=== PATIENT | female | born 2000 | race Caucasian/White ===

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

== ENCOUNTER → 2020-12-16 10:48 | Outpatient (CLI) | payer OTHER, SELFPAY ==
[2020-10-20 10:25] VITALS: BMI 19.4
--- NOTE | 2020-12-16 10:50 | US_ITS ---
STUDY: ULTRASOUND BREAST - LEFT REASON FOR EXAM: Female, 20 years old. Follow-up for left breast masses. Prior biopsy. TECHNIQUE: Axial and longitudinal images of the LEFT breast were performed with a high resolution ultrasound transducer. # OF IMAGES: 17 COMPARISON: Comparison is made with prior sonogram of the left breast dated 12/08/2019. FINDINGS: LEFT Breast: There is a 1.4 cm x 1.7 cm x 0.6 cm well-defined hypoechoic solid nodule at the 12 o''clock position of the breast at 8 cm from the nipple. This is unchanged. Prior biopsy was performed. At the 1 o''clock position breast at 3 cm from the nipple, there is a 1.2 cm x 1 cm x 0.8 cm hypoechoic slightly irregular nodule. No posterior shadowing or enhancement is seen. This is unchanged. Prior biopsy was performed. US/Breast Complete Unilateral IMPRESSION: Stable examination. These nodules have been biopsied. ASSESSMENT CATEGORY: BIRADS Category 2: Benign. A letter regarding these results will be sent to the patient by the facility within 30 days. Electronically Signed: Ezra Hamm MD at 8:51 EDT , Service support ,
== END ==
PROVIDERS: PCP Pediatrics; Referring Provider Surgery; Visit Provider Surgery
DX: Z98.890 Other specified postprocedural states (principal)
CPT/HCPCS: 76641

== ENCOUNTER → 2022-10-29 | Outpatient (CLI) | payer OTHER, SELFPAY ==
[2022-10-30 22:06] LABS: Chlamydia By Nucleic Acid AMP Negative (Negative); Gonococcus By Nucleic Acid AMP Negative (Negative)
[2022-11-05 12:30] LABS: HPV Reflexed? NOT INDICATED
== END | disposition home or self-care (01) ==
PROVIDERS: PCP Student in an Organized Health Care Education/Training Program; Referring Provider Nurse Practitioner Women's Health; Visit Provider Nurse Practitioner Women's Health
DX: Z12.4 Encounter for screening for malignant neoplasm of cervix (principal); Z11.3 Encounter for screening for infections with a predominantly sexual mode of transmission
CPT/HCPCS: 87491; 87591; 88175; G0145

== ENCOUNTER → 2024-02-12 | Outpatient (CLI) | payer OTHER, SELFPAY ==
[2024-02-19 15:08] LABS: Almond <0.10 kU/L (Class 0); Banana <0.10 kU/L (Class 0); Brazil Nut <0.10 kU/L (Class 0); Cashew <0.10 kU/L (Class 0); Clam <0.10 kU/L (Class 0); Codfish <0.10 kU/L (Class 0); Crab <0.10 kU/L (Class 0); Egg, Whole <0.10 kU/L (Class 0); Hazelnut/Filbert <0.10 kU/L (Class 0); Milk (Cow) <0.10 kU/L (Class 0); Oat <0.10 kU/L (Class 0); Peanut <0.10 kU/L (Class 0); Pecan <0.10 kU/L (Class 0); Salmon <0.10 kU/L (Class 0); Shrimp <0.10 kU/L (Class 0); Tuna <0.10 kU/L (Class 0); Wheat <0.10 kU/L (Class 0); Yeast <0.10 kU/L (Class 0)
== END | disposition home or self-care (01) ==
LOC: LAB 16:19
PROVIDERS: PCP Student in an Organized Health Care Education/Training Program; Referring Provider Otolaryngology Otolaryngology/Facial Plastic Surgery; Visit Provider Otolaryngology Otolaryngology/Facial Plastic Surgery
DX: T78.40XA Allergy, unspecified, initial encounter (principal)
CPT/HCPCS: 86003

== ENCOUNTER → 2024-10-13 | Outpatient (CLI) | payer OTHER, SELFPAY ==
--- NOTE | 2024-10-13 14:25 | BI_ITS ---
EXAM: DIAG MAMM W/CAD, BILAT; BREAST LIMITED UNILATERAL; BILAT BRST MEL STAND ALONE 10/13/2024 CLINICAL HISTORY: F, Age 24 y/o , BREAST LUMP; LUMP. No family history of breast cancer. 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 TECHNIQUE: Bilateral Diagnostic digital breast tomosynthesis with 2D and 3D images. Computer aided detection. Also, targeted right breast ultrasound was performed. COMPARISON: Baseline examination. Left breast ultrasounds dated 12/16/2020 and 12/08/2019. FINDINGS: MAMMOGRAM: TISSUE DENSITY: The breast tissue is extremely dense which lowers the sensitivity of mammography. The mammogram demonstrates that the patient has dense breasts. Supplemental screening with whole breast ultrasound or MRI may be considered for further evaluation. Bilateral Breast Mammographic Findings: There is a triangle skin marker indicating an area of palpable concern in the central lower right breast. However, there is no definite underlying mammographic finding due to extremely dense breast tissue. Otherwise, there are no suspicious findings seen in the left breast. ULTRASOUND: Ultrasound performed of the area of palpable concern in the right breast demonstrates an oval hypoechoic mass with vascular flow and posterior acoustic enhancement measuring 1.1 x 0.7 x 1.1 cm. This likely represents a fibroadenoma. BI/DIAG MAMM W/CAD, BILAT IMPRESSION: 1. The palpable area of concern in the right breast correlates to a probably b enign mass which likely represents a fibroadenoma. Recommend follow-up diagnostic ultrasound of the right breast in six-months. 2. There is no evidence of malignancy in the left breast. Right Breast: BIRADS 3 PROBABLY BENIGN. Left Breast: BIRADS 1 NEGATIVE. OVERALL FINAL ASSESSMENT: BIRADS 3 PROBABLY BENIGN. RECOMMENDATION: Recommendation: Ultrasound. A letter with findings and recommendations will be mailed to the patient. Reading Location: [id number]
--- NOTE | 2024-10-13 15:18 | BI_ITS ---
EXAM: DIAG MAMM W/CAD, BILAT; BREAST LIMITED UNILATERAL; BILAT BRST MEL STAND ALONE 10/13/2024 CLINICAL HISTORY: F, Age 24 y/o , BREAST LUMP; LUMP. No family history of breast cancer. 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 TECHNIQUE: Bilateral Diagnostic digital breast tomosynthesis with 2D and 3D images. Computer aided detection. Also, targeted right breast ultrasound was performed. COMPARISON: Baseline examination. Left breast ultrasounds dated 12/16/2020 and 12/08/2019. FINDINGS: MAMMOGRAM: TISSUE DENSITY: The breast tissue is extremely dense which lowers the sensitivity of mammography. The mammogram demonstrates that the patient has dense breasts. Supplemental screening with whole breast ultrasound or MRI may be considered for further evaluation. Bilateral Breast Mammographic Findings: There is a triangle skin marker indicating an area of palpable concern in the central lower right breast. However, there is no definite underlying mammographic finding due to extremely dense breast tissue. Otherwise, there are no suspicious findings seen in the left breast. ULTRASOUND: Ultrasound performed of the area of palpable concern in the right breast demonstrates an oval hypoechoic mass with vascular flow and posterior acoustic enhancement measuring 1.1 x 0.7 x 1.1 cm. This likely represents a fibroadenoma. BI/Bilat Brst Mel Stand Alone IMPRESSION: 1. The palpable area of concern in the right breast correlates to a probably b enign mass which likely represents a fibroadenoma. Recommend follow-up diagnostic ultrasound of the right breast in six-months. 2. There is no evidence of malignancy in the left breast. Right Breast: BIRADS 3 PROBABLY BENIGN. Left Breast: BIRADS 1 NEGATIVE. OVERALL FINAL ASSESSMENT: BIRADS 3 PROBABLY BENIGN. RECOMMENDATION: Recommendation: Ultrasound. A letter with findings and recommendations will be mailed to the patient. Reading Location: [id number]
== END | disposition home or self-care (01) ==
PROVIDERS: PCP Student in an Organized Health Care Education/Training Program; Referring Provider Nurse Practitioner Family; Visit Provider Nurse Practitioner Family
DX: N63.0 Unspecified lump in unspecified breast (principal)
CPT/HCPCS: 76642; 77062; 77066; G0279

== ENCOUNTER → 2024-10-21 | Outpatient (CLI) | payer OTHER, SELFPAY ==
--- NOTE | 2024-10-21 14:00 | BRBX_PTH ---
PATIENT: MARA LANGLEY LOC: [facility] U#:[id number] AGE/SX: 24/F ROOM: RE10/21/[address]: Dr. Tu Hancock MD : 2000 BED: DIS: 10/21/2024 SPEC #: [id number] RECD: 10/21/24 15:19 STATUS: BROOKLYNN REAnneliese #: [id number] BEBO: 10/21/24 14:[address]: Tu Hancock DEPT: SURGICAL PATHOLOGY RECD BY: Hamida Dillard ENTERED: 10/22/24 06:59 SP TYPE: BREAST BX OT DR: Dr. Curtis Tate DO Tissues: A - Right breast, NOS Procedures: Surgery Specimen Level IV HEADER OPERATION: Core needle biopsy right breast mass PRE-OP DIAGNOSIS: Right breast mass TISSUE SUBMITTED: A- Right breast mass Ischemic Time: 1 minute Fixation Time: 5 hours MICROSCOPIC DIAGNOSIS A. Right breast, mass, biopsy: * Two detached hypercellular stromal tissue fragments (See note) Note: Sections show predominantly benign breast tissue with two detached hypercellular stromal fragments. No atypia or increased mitosis is seen in these areas. The findings may be seen in fibroadenomas (favored) or phyllodes tumor. Clinical and radiologic correlation is recommended. MICROSCOPIC DESCRIPTION Slides are reviewed. GROSS DESCRIPTION A. Received in formalin in a container labeled with the patient's name, date of , and R breast mass are multiple joshua-yellow fragments of fibrofatty tissue measuring 1.5 x 0.6 x 0.2 cm in aggregate. Submitted in toto in A1. Total formalin fixation time: Between 6 and 72 hours. [facility] 10/23/2024 CPT:74987
== END | disposition home or self-care (01) ==
LOC: LABSPEC 15:37
PROVIDERS: PCP Student in an Organized Health Care Education/Training Program; Referring Provider Surgery; Visit Provider Surgery
DX: N63.10 Unspecified lump in the right breast, unspecified quadrant (principal)
CPT/HCPCS: 88305

== ENCOUNTER → 2024-11-02 | Outpatient (CLI) | payer OTHER, SELFPAY ==
[2024-11-03 04:07] LABS: Thyroid Peroxidase AB 15 IU/mL (0-34)
== END | disposition home or self-care (01) ==
PROVIDERS: PCP Student in an Organized Health Care Education/Training Program; Referring Provider Nurse Practitioner Women's Health; Visit Provider Nurse Practitioner Women's Health
DX: Z13.29 Encounter for screening for other suspected endocrine disorder (principal); E04.9 Nontoxic goiter, unspecified
CPT/HCPCS: 36415; 84439; 84443; 86376

== ENCOUNTER → 2024-11-11 | Outpatient (CLI) | payer OTHER, SELFPAY ==
--- NOTE | 2024-11-11 16:55 | US_ITS ---
PROCEDURE: US THYROID 11/11/2024 REASON FOR EXAM: ENLARGED THYROID TECHNIQUE: High-frequency thyroid ultrasound, including grayscale and color-flow images. COMPARISON: No relevant prior. FINDINGS: RIGHT THYROID LOBE Size: 4.2 X 1.4 X 1.3 cm. Contour: Smooth. Parenchyma: Homogeneous. Nodules: None noted. LEFT THYROID LOBE Size: 4.1 x 1.5 x 1.1 cm. Contour: Smooth. Parenchyma: Homogeneous. Nodules: None noted. ISTHMUS Size: 0.7.cm. Contour: Smooth. Parenchyma: Homogeneous. Nodules: None noted. US/Thyroid IMPRESSION: Normal ultrasound of the thyroid gland. RECOMMENDATION: Based on most suspicious nodule. Nodule size = largest diameter Only evaluate nodule if =>5 mm. Growth > 20% in 2 dimensions = worsening. Follow up to 4 nodules. Recommend biopsy for no more than 2 nodules. Reading Location: [facility]
== END | disposition home or self-care (01) ==
LOC: US 16:54
PROVIDERS: PCP Student in an Organized Health Care Education/Training Program; Referring Provider Nurse Practitioner Women's Health; Visit Provider Nurse Practitioner Women's Health
DX: E04.9 Nontoxic goiter, unspecified (principal)
CPT/HCPCS: 76536